=== PATIENT | female | born 1975 | race African-American/Black ===

== ENCOUNTER 2017-09-18 00:34 | Emergency (ER) | payer OTHER ==
[~2017-09-18] VITALS: Ht 170.2 cm; Wt 99.8 kg
--- NOTE | ~2017-09-18 | EKG ---
[place] [address] [facility] [place] [address] ELECTROCARDIOGRAM REPORT Name: FLORENCE COSME Room #: [facility]P [id number] Admission: 09/18/17 Attend Phys: Discharge: 09/18/17 Date of : 71 Report #: [id number] THIS REPORT FOR: //name// [facility] ED Test Date: 2017-09-18 Test Time: 01:09:32 Pat Name: FLORENCE COSME Department: Room: Gender: F Nurse Staff: OSITO : 1975 Requested By: Henrique Delaney Order Number: [id number] MD: Benedicto Barrios Measurements Intervals [place] Rate: 69 P: 68 CO: 158 QRS: 41 QRSD: 80 T: 35 QT: 406 QTc: 435 Interpretive Statements Sinus rhythm Consider left atrial enlargement No previous ECG available for comparison Electronically Signed On 09-18-2017 7:32:20 CDT by Benedicto Barrios [email or web address] <ELECTRONICALLY SIGNED> By: Benedicto Barrios MD 09/18/17 0732 [id number] Benedicto Barrios MD /KENNY
[~2017-09-18 00:34] MED LIST: BACTRIM DS TAB1 EACH PO; CIPRO500 MG PO; HYDROCHLOROTH12.5 M1 PO; IBUPROFEN 600600 M1 PO; LISINOPRIL-HCT1 EAC1 PO; LISINOPRIL10 MG PO; NORVASC5 MG
[2017-09-18 01:11] LABS: URINE BILIRUBIN NEGATIVE (Negative); URINE BLOOD TRACE (Negative); URINE COLOR YELLOW; URINE GLUCOSE-RANDOM* NEGATIVE (Negative); URINE KETONES TRACE (Negative); URINE NITRITE-REFLEX NEGATIVE (Negative); URINE PROTEIN (DIPSTICK) NEGATIVE (Negative); URINE SPECIFIC GRAVITY >= 1.030 (1.005-1.035); URINE UROBILINOGEN 0.2 E.U./dl (0.2-1.0)
[2017-09-18 01:13] LABS: URINE CLARITY SL CLOUDY; URINE LEUKOCYTES-REFLEX 1+ (Negative)
[2017-09-18 01:13] LABS: ABSOLUTE NEUTROPHILS 3.1 thou/uL (1.4-8.2); BASOPHILS 0.9 % (0.0-2.0); EOSINOPHILS 2.9 % (0.0-3.0); HEMATOCRIT 32.8 % (37.0-47.0); HEMOGLOBIN 10.9 gm/dL (12.0-15.0); LYMPHOCYTES 34.8 % (24.0-44.0); MCH 25.2 pg (26.0-34.0); MCHC 33.2 g/dL (28.0-37.0); MCV 75.9 fL (80.0-100.0); MONOCYTES 10.7 % (1.0-8.0); PLATELET COUNT 262 thou/uL (150-400); POLYS 50.7 % (36.0-66.0); RBC 4.32 mil/uL (4.20-5.00); RDW 16.9 % (10.5-14.5); WBC 6.2 thou/uL (4.0-11.0)
[2017-09-18 01:20] LABS: AMP/METHAMP Negative (Negative); BARBITURATES Negative (Negative); BENZODIAZEPINES Negative (Negative); COCAINE Negative (Negative); METHADONE Negative (Negative); OPIATES Negative (Negative); PCP Negative (Negative)
[2017-09-18 01:21] LABS: MUCUS >6 Heavy strn/LPF (None Seen); SQUAMOUS >10 Many /LPF (0-3)
[2017-09-18 01:22] LABS: CASTS None Seen /LPF (None Seen); URINE RBC 0-2 Rare /HPF (0-2)
[2017-09-18 01:23] LABS: BACTERIA-REFLEX >30 Many /HPF (None Seen); CRYSTALS None Seen /LPF (None Seen)
[2017-09-18 01:23] LABS: ANION GAP 9 mmol/L (7-16); BUN 15 mg/dL (7-18); CALCIUM 8.7 mg/dL (8.5-10.1); CHLORIDE 104 mmol/L (98-107); CO2 23 mmol/L (21-32); GLUCOSE 97 mg/dL (74-106); POTASSIUM 3.7 mmol/L (3.5-5.1); SODIUM 136 mmol/L (136-145)
[2017-09-18 01:33] LABS: ALBUMIN 3.6 g/dL (3.4-5.0); LIPASE 112 U/L (73-393); SALICYLATE 4.3 mg/dL (2.8-20.0); SGOT 20 U/L (15-37); SGPT 21 U/L (30-65); TOTAL BILIRUBIN 0.3 mg/dL (<0.1-1.0); TOTAL PROTEIN 7.3 g/dL (6.4-8.2); TROPONIN-I < 0.04 ng/mL (<0.06)
[2017-09-18] MEDS ORDERED: TRAMADOL 50 MG50 MG PO (02:50)
[2017-09-18] MEDS ORDERED: KEFLEX500 M1 PO (02:50)
[2017-09-18 02:51] VITALS: BP 166/99
== END 2017-09-18 03:11 | disposition home or self-care (01) ==
LOC: ER 00:34
PROVIDERS: Emergency Medicine
DX: S93.501A Unspecified sprain of right great toe, initial encounter (principal); N39.0 Urinary tract infection, site not specified; D64.9 Anemia, unspecified; F43.21 Adjustment disorder with depressed mood; I10 Essential (primary) hypertension; Z87.442 Personal history of urinary calculi; Z91.040 Latex allergy status; X58.XXXA Exposure to other specified factors, initial encounter; Y93.89 Activity, other specified; Y92.89 Other specified places as the place of occurrence of the external cause; Y99.8 Other external cause status

== ENCOUNTER 2018-03-13 16:24 | Emergency (ER) | payer OTHER ==
[~2018-03-13] VITALS: Ht 170.2 cm; Wt 99.8 kg
[~2018-03-13 16:24] MED LIST changes: +KEFLEX500 M1 PO; +TRAMADOL 50 MG50 MG PO
[2018-03-13 16:44] LABS: URINE BILIRUBIN NEGATIVE (Negative); URINE BLOOD 3+ (Negative); URINE CLARITY CLOUDY; URINE COLOR RED; URINE GLUCOSE-RANDOM* NEGATIVE (Negative); URINE KETONES 2+ (Negative); URINE PROTEIN (DIPSTICK) 3+ (Negative); URINE SPECIFIC GRAVITY 1.025 (1.005-1.035); URINE UROBILINOGEN 0.2 E.U./dl (0.2-1.0)
[2018-03-13 16:46] LABS: URINE LEUKOCYTES-REFLEX 2+ (Negative); URINE NITRITE-REFLEX POSITIVE (Negative)
[2018-03-13 16:57] LABS: BACTERIA-REFLEX 1-9 Few /HPF (None Seen); CASTS None Seen /LPF (None Seen); CRYSTALS None Seen /LPF (None Seen); SQUAMOUS 4-10 Moderate /LPF (0-3); URINE RBC >20 Many /HPF (0-2)
[2018-03-13 17:30] LABS: ABSOLUTE NEUTROPHILS 6.6 thou/uL (1.4-8.2); BASOPHILS 0.8 % (0.0-2.0); EOSINOPHILS 2.3 % (0.0-3.0); HEMATOCRIT 32.6 % (37.0-47.0); HEMOGLOBIN 11.1 gm/dL (12.0-15.0); LYMPHOCYTES 19.9 % (24.0-44.0); MCH 25.2 pg (26.0-34.0); MONOCYTES 6.7 % (1.0-8.0); PLATELET COUNT 287 thou/uL (150-400); POLYS 70.3 % (36.0-66.0); RDW 17.1 % (10.5-14.5); WBC 9.4 thou/uL (4.0-11.0)
[2018-03-13 17:38] LABS: CALCIUM 9.1 mg/dL (8.5-10.1); CREATININE 1.2 mg/dL (0.6-1.0); POTASSIUM 4.3 mmol/L (3.5-5.1)
[2018-03-13 17:43] LABS: ALBUMIN 3.5 g/dL (3.4-5.0); TOTAL BILIRUBIN 0.4 mg/dL (<0.1-1.0); TOTAL PROTEIN 7.6 g/dL (6.4-8.2)
[2018-03-13] MEDS ORDERED: NORCO 5-325 TA1 EACH PO (17:49)
[2018-03-13] MEDS ORDERED: BACTRIM DS TAB1 EACH PO (17:49)
== END 2018-03-13 19:14 | disposition home or self-care (01) ==
LOC: ER 16:24
PROVIDERS: Physician Assistant
DX: N12 Tubulo-interstitial nephritis, not specified as acute or chronic (principal); I12.9 Hypertensive chronic kidney disease with stage 1 through stage 4 chronic kidney disease, or unspecified chronic kidney disease; N18.9 Chronic kidney disease, unspecified; Z87.442 Personal history of urinary calculi; Z91.040 Latex allergy status

== ENCOUNTER 2020-10-01 20:06 | Inpatient (IN) | payer OTHER ==
[~2020-10-01] VITALS: Ht 170.2 cm; Wt 101.2 kg
[~2020-10-01 20:06] MED LIST changes: +NORCO 5-325 TA1 EACH PO; -NORVASC5 MG; +NORVASC5 MG PO
[2020-10-01 20:10] VITALS: BP 162/115
[2020-10-01 20:31] LABS: URINE BILIRUBIN NEGATIVE (Negative); URINE BLOOD 3+ (Negative); URINE CLARITY CLOUDY; URINE COLOR YELLOW; URINE GLUCOSE-RANDOM* NEGATIVE (Negative); URINE KETONES NEGATIVE (Negative); URINE LEUKOCYTES-REFLEX 1+ (Negative); URINE NITRITE-REFLEX NEGATIVE (Negative); URINE PROTEIN (DIPSTICK) 2+ (Negative); URINE SPECIFIC GRAVITY 1.015 (1.005-1.035)
[2020-10-01 20:38] LABS: ABSOLUTE NEUTROPHILS 2.6 thou/uL (1.4-8.2); BASOPHILS 1.3 % (0.0-2.0); EOSINOPHILS 8.9 % (0.0-3.0); HEMATOCRIT 24.4 % (37.0-47.0); HEMOGLOBIN 8.1 gm/dL (12.0-15.0); LYMPHOCYTES 32.7 % (24.0-44.0); MCH 22.9 pg (26.0-34.0); MCHC 33.3 g/dL (28.0-37.0); MCV 68.8 fL (80.0-100.0); MONOCYTES 10.9 % (1.0-8.0); PLATELET COUNT 286 thou/uL (150-400); POLYS 46.2 % (36.0-66.0); RBC 3.55 mil/uL (4.20-5.00); RDW 19.8 % (10.5-14.5); WBC 5.5 thou/uL (4.0-11.0)
[2020-10-01 20:43] LABS: SQUAMOUS >10 Many /LPF (0-3)
[2020-10-01 20:44] LABS: URINE RBC >20 Many /HPF (NONE SEEN); URINE WBC-REFLEX >25 Many /HPF (0-5)
[2020-10-01 20:46] LABS: CASTS None Seen /LPF (None Seen); CRYSTALS None Seen /LPF (None Seen)
[2020-10-01 20:48] LABS: CALCIUM 8.1 mg/dL (8.5-10.1); CREATININE 0.9 mg/dL (0.6-1.0); POTASSIUM 3.6 mmol/L (3.5-5.1)
[2020-10-01 20:55] LABS: TOTAL BILIRUBIN 0.2 mg/dL (0.2-1.0); TOTAL PROTEIN 6.4 g/dL (6.4-8.2)
[2020-10-01 21:23] LABS: ANISOCYTOSIS 2+; POLYCHROMASIA 1+
[2020-10-01 21:24] LABS: HYPOCHROMASIA 2+; MICROCYTES 2+
[2020-10-02 00:16] VITALS: BP 167/120
[2020-10-02 01:30] VITALS: BP 138/84
--- NOTE | 2020-10-02 03:03 | NUR ---
PT ADMITTED TO THE UNIT AT APPROXIMATELY 0200. PT IS A/O X4 AND IS UP AD TONJA IN ROOM. ROOM AIR, MEDSURG STATUS NO TELE MONITOR. VSS. AFEBRILE. C/O PAIN TO PELVIS AND BILATERAL LOWER BACK ON BOTH RIGHT AND LEFT SIDES. PRN PAIN MEDICATION GIVEN DIRECTED. CLEAR LIQUID DIET STARTED AND PRESCRIBED FLUID IS INFUSING. EDUCATED PT ON THE USE OF CALL LIGHT. CALLS OUT APPROPRIATELY. ADMISSION IS COMPLETED. WILL CONTINUE TO MONITOR.
[2020-10-02 06:07] VITALS: BP 135/90
[2020-10-02 07:26] VITALS: BP 160/110
[2020-10-02 15:53] LABS: HEMATOCRIT 25.7 % (37.0-47.0); HEMOGLOBIN 8.4 gm/dL (12.0-15.0)
[2020-10-02 16:29] VITALS: BP 120/90
--- NOTE | 2020-10-02 19:13 | NUR ---
ASSUMED PATIENT CARE AT 0700. A/0 X4. UP AD TONJA. PAIN MEDS GIVEN NEEDS. SLOWLY TOWARDS POC GOALS.
--- NOTE | 2020-10-03 01:57 | NUR ---
SPOKE TO RADIOLOGY. REPORT FOR CT WONT FAX PROPERLY. GOT REPORT FAXED TO UNIT FAX. COPY PLACED ON CHART.
[2020-10-03 04:08] VITALS: BP 132/90
[2020-10-03 04:51] LABS: HEMATOCRIT 25.7 % (37.0-47.0); HEMOGLOBIN 8.4 gm/dL (12.0-15.0); MCH 22.8 pg (26.0-34.0); MCHC 32.6 g/dL (28.0-37.0); MCV 70.1 fL (80.0-100.0); RBC 3.66 mil/uL (4.20-5.00); RDW 19.7 % (10.5-14.5); WBC 4.6 thou/uL (4.0-11.0)
[2020-10-03 05:00] LABS: CALCIUM 8.1 mg/dL (8.5-10.1); POTASSIUM 3.5 mmol/L (3.5-5.1)
--- NOTE | 2020-10-03 06:26 | NUR ---
KUB COMPLETED EARLY IN SHIFT. CT RESULTS PLACED IN CHART. PAIN MANAGEMENT AND IVF GTT POC GOAL FOR EVENING. PT UP AD TONJA. CALL LIGHT PLACED WITHIN REACH.
[2020-10-03 07:35] VITALS: BP 155/101
[2020-10-03] MEDS ORDERED: COZAAR 25 MG TA25 M1 PO (08:19)
[2020-10-03] MEDS ORDERED: LO-DOSE ASPIRIN81 M1 PO (08:19)
[2020-10-03] MEDS ORDERED: OMEPRAZOLE 20 M20 M1 PO (08:20)
[2020-10-03] MEDS ORDERED: TOPROL XL100 MG PO (08:20)
[2020-10-03] MEDS ORDERED: ZOLOFT50 M1 PO (08:21)
[2020-10-03 14:26] LABS: HEMATOCRIT 27.7 % (37.0-47.0); HEMOGLOBIN 8.8 gm/dL (12.0-15.0)
[2020-10-03 15:22] VITALS: BP 141/95
[2020-10-03 19:36] VITALS: BP 145/93
[2020-10-04 04:28] VITALS: BP 137/78
[2020-10-04 04:39] LABS: HEMATOCRIT 29.3 % (37.0-47.0); HEMOGLOBIN 9.2 gm/dL (12.0-15.0)
--- NOTE | 2020-10-04 06:32 | NUR ---
PAIN MANAGEMENT AGAIN FOR SHIFT. POC WITH IVF AND IVPB. PT STILL STATING THAT SHE IS HAVING STRESS INCONTINENCE. VSS. PT UP AD TONJA.
[2020-10-04 07:14] VITALS: BP 126/75
[2020-10-04] MEDS ORDERED: OXYBUTYNIN 5 MG5 M2 PO (10:03)
[2020-10-04] MEDS ORDERED: MACROBID 100 M100 MG PO (10:03)
--- NOTE | 2020-10-04 11:26 | NUR ---
CM S/W PT REGARDING D/C PLANNING. PT INDICATED SHE RECENTLY MOVED BACK INTO [facility] FROM [place] AND IS STAYING WITH COUSINS. PT IS INDEPENDENT W/ADLS. PT DENIES HX WITH HH OR SNF. PT HAS 0 DMES. PT HAS NO ANTICIPATED CM NEEDS.
[2020-10-04 12:11] VITALS: BP 126/75
[2020-10-04 12:21] VITALS: BP 126/75
== END 2020-10-04 12:41 | disposition home or self-care (01) | DRG 690 ==
LOC: ER 20:06 → EROBS 23:17 → 3W 10-02 01:47
PROVIDERS: Hospitalist; Nurse Practitioner Family; ADMIT Internal Medicine; ATTEND Internal Medicine
DX: N30.01 Acute cystitis with hematuria (principal); I12.9 Hypertensive chronic kidney disease with stage 1 through stage 4 chronic kidney disease, or unspecified chronic kidney disease; N18.9 Chronic kidney disease, unspecified; F17.210 Nicotine dependence, cigarettes, uncomplicated; E66.9 Obesity, unspecified; N20.0 Calculus of kidney; D64.9 Anemia, unspecified; R32 Unspecified urinary incontinence; Z79.899 Other long term (current) drug therapy; Z88.7 Allergy status to serum and vaccine; Z91.040 Latex allergy status; Z83.3 Family history of diabetes mellitus; Z82.49 Family history of ischemic heart disease and other diseases of the circulatory system; Z68.34 Body mass index [BMI] 34.0-34.9, adult
CPT/HCPCS: 10080

== ENCOUNTER 2021-07-06 14:11 | Emergency (ER) | payer BC ==
[~2021-07-06] VITALS: Ht 170.2 cm; Wt 99.8 kg
[~2021-07-06 14:11] MED LIST changes: +COZAAR 25 MG TA25 M1 PO; +LO-DOSE ASPIRIN81 M1 PO; +MACROBID 100 M100 MG PO; +OMEPRAZOLE 20 M20 M1 PO; +OXYBUTYNIN 5 MG5 M2 PO; +TOPROL XL100 MG PO; +ZOLOFT50 M1 PO
[2021-07-06 14:25] LABS: URINE BILIRUBIN NEGATIVE (Negative); URINE BLOOD 2+ (Negative); URINE CLARITY CLOUDY; URINE COLOR ORANGE; URINE GLUCOSE-RANDOM* NEGATIVE (Negative); URINE KETONES TRACE (Negative); URINE LEUKOCYTES-REFLEX 1+ (Negative); URINE NITRITE-REFLEX NEGATIVE (Negative); URINE PROTEIN (DIPSTICK) 2+ (Negative); URINE SPECIFIC GRAVITY >= 1.030 (1.005-1.035); URINE UROBILINOGEN 0.2 E.U./dl (0.2-1.0)
[2021-07-06 14:36] LABS: CASTS None Seen /LPF (None Seen); SQUAMOUS >10 Many /LPF (0-3); URINE RBC >20 Many /HPF (NONE SEEN); URINE WBC-REFLEX 6-15 Few /HPF (0-5)
[2021-07-06 14:37] LABS: CRYSTALS None Seen /LPF (None Seen)
[2021-07-06] MEDS ORDERED: MACROBID 100 M100 M1 PO (14:50)
[2021-07-06 15:27] VITALS: BP 137/75
== END 2021-07-06 15:42 | disposition home or self-care (01) ==
LOC: ER 14:11
PROVIDERS: Emergency Medicine
DX: N39.0 Urinary tract infection, site not specified (principal); I12.9 Hypertensive chronic kidney disease with stage 1 through stage 4 chronic kidney disease, or unspecified chronic kidney disease; N18.9 Chronic kidney disease, unspecified; F32.9 Major depressive disorder, single episode, unspecified; Z98.51 Tubal ligation status; Z87.442 Personal history of urinary calculi; Z79.82 Long term (current) use of aspirin; Z79.899 Other long term (current) drug therapy; Z79.891 Long term (current) use of opiate analgesic; Z91.040 Latex allergy status; Z88.8 Allergy status to other drugs, medicaments and biological substances